=== PATIENT | male | born 1970 | race African-American/Black ===

== ENCOUNTER 2024-08-22 12:01 | Emergency (ER) | payer OTHER ==
[~2024-08-22] VITALS: Ht 185.4 cm; Wt 93.0 kg
[2024-08-22 12:04] VITALS: O2SAT 97
[2024-08-22] MEDS ORDERED: TETANUS, DIPHTHERIA, PERTUSSIS VAC/PF 0.5ML (>10YR OLD) IM ONE (12:30)
[2024-08-22 13:07] LABS: BASOPHILS % 0.8 % (0.0-2.0); EOSINOPHILS % 1.6 % (0.0-5.0); HEMATOCRIT. 41.9 % (42.0-52.0); HEMOGLOBIN. 13.9 g/dL (14.0-18.0); LYMPHOCYTES % 28.9 % (20.0-50.0); MEAN CORPUSCULAR HEMOGLOBIN 30.2 pg (28.0-32.0); MEAN CORPUSCULAR HGB CONC 33.1 g/dL (31.0-37.0); MEAN CORPUSCULAR VOLUME 91.3 fL (80.0-94.0); MEAN PLATELET VOLUME 8.2 fl (7.4-10.4); MONOCYTES % 10.2 % (2.0-8.0); NEUTROPHILS % 58.5 % (40.0-76.0); PLATELET 169 x1000/uL (130-400); RED BLOOD CELL COUNT 4.58 mill/uL (4.7-6.1); RED CELL DISTRIBUTION WIDTH 13.3 % (11.6-14.6); WHITE BLOOD COUNT 4.1 x1000/uL (4.5-11.0)
[2024-08-22 13:09] LABS: CARBON DIOXIDE 27 mEq/L (21-32); CHLORIDE 104 mEq/L (98-107); POTASSIUM 3.8 mEq/L (3.5-5.1); SODIUM 138 mEq/L (136-145)
[2024-08-22 13:10] LABS: CALCIUM 8.8 mg/dL (8.7-10.4)
[2024-08-22 13:14] LABS: CREATININE 1.3 mg/dL (0.6-1.3)
[2024-08-22 13:15] LABS: GLUCOSE 148 mg/dL (70-105); UREA NITROGEN BLOOD 20 mg/dL (9-23)
[2024-08-22 13:16] LABS: ALANINE AMINOTRANSFERASE 28 IU/L (10-49); ALBUMIN 4.3 g/dL (3.2-4.8); ASPARTATE AMINOTRANSFERASE 21 IU/L (<34)
[2024-08-22 13:17] LABS: BILIRUBIN DIRECT 0.1 mg/dL (<=3.0); BILIRUBIN TOTAL 0.5 mg/dL (0.1-1.0); PROTEIN TOTAL 7.3 g/dL (6.0-8.3)
[2024-08-22 13:18] LABS: ETHANOL BLOOD < 10 mg/dL (<10); TROPONIN I HIGH SENSITIVITY < 4 ng/L (3.0-53)
[2024-08-22 13:55] LABS: D-DIMER 0.43 mg/L FEU (<0.50); PROTHROMBIN TIME 11.2 sec (9.6-11.0)
[2024-08-22] MEDS: SODIUM CHLORIDE 0.9% 1,000 ML IV ONE (14:59)
[2024-08-22 15:15] VITALS: TEMP 36.72516
[2024-08-22] MEDS: TETANUS, DIPHTHERIA, PERTUSSIS VAC/PF 0.5ML (>10YR OLD) IM ONE (16:04)
[2024-08-22 19:44] VITALS: BP 139/86; PULSE 81; RESP 16; O2SAT 96
== END 2024-08-22 19:59 | disposition short-term general hospital (02) ==
LOC: ER 12:01 → EDBEDREQ 12:31 → CANBEDREQ 18:34 → ER 19:59
DX: R55 Syncope and collapse (principal)
CPT/HCPCS: 80076; 80048; 80320; 83880; 83690; 85025; 85379; 85610; 84484; 36415; 71045; 70450; 90715; 93005; 90471; 96360; 99285; Z7610 ×4; G0480